=== PATIENT | female | born 1995 | race Caucasian/White ===

== ENCOUNTER 2024-11-27 20:17 | Inpatient (IN) | payer BC ==
[2024-11-27] MEDS ORDERED: Carboprost Tromethamine 250 MCG/1 mL Vial IM PRN (20:51)
[2024-11-27] MEDS ORDERED: Sodium Chloride 0.9% 2.5 ML Syringe FLUSH PRN (20:51)
[2024-11-27] MEDS ORDERED: Misoprostol 200 MCG Tab RECTAL PRN (20:51)
[2024-11-27] MEDS ORDERED: Sodium Chloride 0.9% 20 ML SDV IV PRN (20:51)
[2024-11-27] MEDS ORDERED: Sodium Chloride 0.9% 10 ML Syringe FLUSH PRN (20:51)
[2024-11-27] MEDS ORDERED: Methylergonovine 0.2 MG Tab PO PRN (20:51)
[2024-11-27] MEDS ORDERED: Oxytocin/0.9 % Sodium Chloride 30 UNIT/500 ML BAG IV SCH (21:00)
[2024-11-27] MEDS: Ondansetron 4 MG/2 ML SDV IVPUSH PRN (21:44)
[2024-11-27 21:51] LABS: HEMATOCRIT 27.6 % (37.0-47.0); HEMOGLOBIN 8.7 g/dL (12.0-16.0); MEAN CORPUSCULAR HEMOGLOBIN 24.7 pg (28.0-32.0); MEAN CORPUSCULAR HGB CONC 31.5 g/dL (32.0-36.0); MEAN CORPUSCULAR VOLUME 78.4 fL (83.0-99.0); MEAN PLATELET VOLUME 10.4 fL (9.4-12.3); PLATELET COUNT,PLT 220 K/uL (150-400); RED BLOOD CELL COUNT 3.52 M/uL (4.10-5.30)
[2024-11-27] MEDS: Nalbuphine 10 MG/1 ML Vial IVPUSH ONE (23:02)
[2024-11-28] MEDS: Lactated Ringers 1,000 ML IV SCH (05:04)
[2024-11-28] MEDS ORDERED: fentaNYL 100 MCG/2 ML SDV ONE (06:53)
[2024-11-28] MEDS ORDERED: Morphine PF 10 MG/10 ML SDV ONE (06:53)
[2024-11-28] MEDS ORDERED: dexmedeTOMIDine HCl 200 MCG/2 ML SDV ONE (06:53)
[2024-11-28] MEDS ORDERED: Dexamethasone 4 MG/ML 5 ML MDV ONE (06:59)
[2024-11-28] MEDS ORDERED: Ropivacaine 0.5% 5 MG/ML 30 ML SDV ONE (06:59)
[2024-11-28] MEDS ORDERED: Ondansetron 4 MG/2 ML SDV ONE (06:59)
[2024-11-28] MEDS ORDERED: Phenylephrine 1% 10 MG/ML SDV ONE (06:59)
[2024-11-28] MEDS ORDERED: Oxytocin 10 Units/1 ML SDV ONE (06:59)
[2024-11-28] MEDS ORDERED: ePHEDrine 50 MG/ML SDV ONE (07:00)
[2024-11-28] MEDS ORDERED: Sodium Chloride 0.9% 20 ML ONE (07:06)
[2024-11-28] MEDS ORDERED: ceFAZolin 2 GM Vial ONE (07:07)
[2024-11-28] MEDS ORDERED: Tranexamic Acid 1,000 MG/10 ML Vial ONE (07:18)
[2024-11-28] MEDS ORDERED: Calcium Chloride 10% 1 GM/10 ML Syringe ONE (07:18)
[2024-11-28] MEDS ORDERED: Phenylephrine HCl In 0.9% NaCl 1 MG/10 ML Syringe IVPUSH PRN (07:32)
[2024-11-28] MEDS ORDERED: Albuterol 0.083% 2.5 MG/3 ML Neb Soln NEB PRN (07:32)
[2024-11-28] MEDS ORDERED: fentaNYL 100 MCG/2 ML SDV IVPUSH PRN (07:32)
[2024-11-28] MEDS ORDERED: Ondansetron 4 MG/2 ML SDV IVPUSH PRN ×3 (07:32→10:13)
[2024-11-28] MEDS ORDERED: Metoclopramide 10 MG/2 ML SDV IVPUSH PRN (07:32)
[2024-11-28] MEDS ORDERED: Nalbuphine 10 MG/1 ML Vial IVPUSH PRN (07:32)
[2024-11-28] MEDS ORDERED: Morphine 2 MG/ML SYRINGE IVPUSH PRN (07:32)
[2024-11-28] MEDS ORDERED: fentaNYL 50 MCG/ML SDV IVPUSH PRN (07:32)
[2024-11-28] MEDS ORDERED: Naloxone 0.4 MG/ML SDV IVPUSH PRN ×3 (07:32→10:28)
[2024-11-28] MEDS ORDERED: HYDROmorphone 1 MG/ML Syringe IVPUSH PRN (07:32)
[2024-11-28] MEDS ORDERED: Acetaminophen/oxyCODONE 325-5 MG Tab PO PRN ×2 (07:32→10:13)
[2024-11-28] MEDS ORDERED: Glycopyrrolate 0.2 MG/ML SDV ONE (08:06)
[2024-11-28] MEDS ORDERED: droPERidol 5 MG/2 ML SDV ONE (08:07)
[2024-11-28] MEDS ORDERED: Metoprolol Tartrate 5 MG/5 ML SDV ONE (08:18)
[2024-11-28] MEDS ORDERED: Bisacodyl 10 MG Supp RECTAL PRN (10:13)
[2024-11-28] MEDS ORDERED: Lanolin 100% Cream 7 GM Tube TOP PRN (10:13)
[2024-11-28] MEDS ORDERED: Oxytocin 10 Units/1 ML SDV IM PRN (10:13)
[2024-11-28] MEDS ORDERED: Misoprostol 200 MCG Tab RECTAL PRN (10:13)
[2024-11-28] MEDS ORDERED: Methylergonovine 0.2 MG/1 ML Amp IM PRN (10:13)
[2024-11-28] MEDS ORDERED: Lactated Ringers 1,000 ML IV SCH (10:15)
[2024-11-28] MEDS ORDERED: Ketorolac 30 MG/ML SDV IVPUSH SCH (10:15)
[2024-11-28] MEDS: diphenhydrAMINE 50 MG/ML SDV IVPUSH PRN ×2 (10:46→12:48)
[2024-11-28] MEDS: ceFAZolin 2 GM in Water For Injection, Sterile 20 ML IVPUSH ONE (11:51)
[2024-11-28] MEDS: Citric Acid/Sodium Citrate Solution 30 ML Cup PO ONE (11:51)
[2024-11-28] MEDS: Ketorolac 30 MG/ML SDV IVPUSH SCH (12:24)
[2024-11-29 06:05] LABS: HEMATOCRIT 31.6 % (37.0-47.0); HEMOGLOBIN 9.9 g/dL (12.0-16.0)
[2024-11-29] MEDS: Docusate Sodium 100 MG Cap PO SCH (08:04)
[2024-11-29] MEDS: Sodium Ferric Gluconate Cmplex 125 MG in Sodium Chloride 0.9% 100 ML IV ONE (10:26)
[2024-11-29] MEDS: Acetaminophen 500 MG Tab PO PRN (14:00)
[2024-11-29] MEDS: Ibuprofen 800 MG Tab PO PRN (22:11)
[2024-11-29] MEDS ORDERED: Simethicone 80 MG Tab.Chew PO ONE (22:22)
[2024-11-30] MEDS: Acetaminophen/oxyCODONE 325-5 MG Tab PO PRN (09:03)
== END 2024-11-30 11:54 | disposition home or self-care (01) | DRG 540 ==
LOC: MW.OBCHECK 20:17 → MW.OB 20:17 → MW.OBCHECK 20:50 → MW.OB 20:51 → OBSVTOIN 11-28 09:51 → MW.OB 11-28 13:00
PROVIDERS: ADMIT Obstetrics & Gynecology; ATTEND Obstetrics & Gynecology
PROC: 30233N1 Transfusion of Nonautologous Red Blood Cells into Peripheral Vein, Percutaneous Approach (ICD-10-PCS; 2024-11-28)
PROC: 10D00Z1 Extraction of Products of Conception, Low, Open Approach (ICD-10-PCS; principal; 2024-11-28 08:00)
DX: O34.211 Maternal care for low transverse scar from previous cesarean delivery (principal); D62 Acute posthemorrhagic anemia; O99.344 Other mental disorders complicating childbirth; O99.02 Anemia complicating childbirth; F41.8 Other specified anxiety disorders; Z37.0 Single live birth; Z3A.38 38 weeks gestation of pregnancy
CPT/HCPCS: 01961; 36415; 36430; 59025; 59514; 64999; 85014; 85018; 85027; 86592; 86850; 86900; 86901; 86920; A9270-GY; J0690; J1100; J1200; J1596; J1790; J1885; J2274; J2300; J2371; J2405; J2590; J2795; J2916; J3010; J3490; J7120; P9016